=== PATIENT | male | born 1980 | race Caucasian/White ===

== ENCOUNTER 2017-01-07 22:34 | Emergency (ER) | payer OTHER ==
[2017-01-08 02:17] LABS: HEMOGLOBIN 14.6 gm/dl (14.0-17.5); RED BLOOD COUNT 5.04 M/UL (4.20-5.50); WHITE BLOOD COUNT 12.1 K/UL (4.5-11.0)
[2017-01-08 02:34] LABS: BUN/CREATININE RATIO 16 (0-10)
== END 2017-01-08 00:36 | disposition home or self-care (01) ==
LOC: ER1 22:34
PROVIDERS: Emergency Medicine
DX: N20.2 Calculus of kidney with calculus of ureter (principal); N50.812 Left testicular pain; N47.1 Phimosis; J44.9 Chronic obstructive pulmonary disease, unspecified; Z88.0 Allergy status to penicillin; Z90.49 Acquired absence of other specified parts of digestive tract
CPT/HCPCS: 36415; 80053; 81001; 83690; 85025; 99284

== ENCOUNTER 2021-01-22 10:29 | Emergency (ER) | payer OTHER ==
[~2021-01-22 10:29] MED LIST: BACTRIM DS TAB1 EACH PO; BENTYL 10MG CAP10 MG PO; FLOMAX 0.4 MG0.4 MG PO; IBUPROFEN600 MG PO; KEFLEX CAP 500500 MG PO; LEVAQUIN750 MG PO; NORCO 5-325 TA1 EACH PO; TORADOL 10 MG T10 MG PO; Voltaren Gel 1 % TOP; ZOFRAN ODT 4 MG4 MG SL; ZOFRAN4 MG PO
== END 2021-01-22 13:24 | disposition left against medical advice (07) ==
LOC: ER1 10:29
DX: Z53.21 Procedure and treatment not carried out due to patient leaving prior to being seen by health care provider (principal)